=== PATIENT | female | born 1935 | race Caucasian/White ===

== ENCOUNTER 2017-01-29 14:46 | Outpatient (CLI) | payer MEDICARE | END 2017-01-29 14:47 | disposition home or self-care (01) | DX: M96.661 Fracture of femur following insertion of orthopedic implant, joint prosthesis, or bone plate, right leg (principal); Z96.643 Presence of artificial hip joint, bilateral ==

== ENCOUNTER 2018-09-29 23:18 | Outpatient (CLI) | payer MEDICARE | END 2018-09-29 23:19 | disposition critical access hospital (66) | LOC: EMS 23:18 | PROVIDERS: ATTEND Surgery | DX: R10.9 Unspecified abdominal pain (principal); R11.2 Nausea with vomiting, unspecified | CPT/HCPCS: A0425; A0429 ==

== ENCOUNTER 2018-09-30 00:08 | Emergency (ER) | payer MEDICARE ==
[2018-09-30 00:44] LABS: BASOPHILS % (AUTO) 0.5 %; EOSINOPHILS % (AUTO) 0.4 %; HGB - HEMOGLOBIN 13.4 g/dL (12.0-16.0); LYMPHOCYTES # (AUTO) 1.1 10^3/uL (1.5-3.5); LYMPHOCYTES % (AUTO) 13.5 %; MEAN CORPUSCULAR HEMOGLOBIN 30.7 pg (27.0-31.0); MEAN CORPUSCULAR HGB CONC 33.8 g/dL (32.0-36.0); MEAN PLATELET VOLUME 8.2 fL (7.9-10.8); MONOCYTES # (AUTO) 0.7 10^3/uL (0.0-1.0); MONOCYTES % (AUTO) 8.6 %; NEUTROPHILS # (AUTO) 6.3 10^3/uL (1.5-6.6); PLT - PLATELET COUNT 249 10^3/uL (130-450); RED BLOOD COUNT 4.37 10^6/uL (4.20-5.40); RED CELL DISTRIBUTION WIDTH 13.7 % (12.0-15.0); WHITE BLOOD COUNT 8.2 x10^3/uL (4.8-10.8)
[2018-09-30 00:56] LABS: ALBUMIN/GLOBULIN RATIO 1.1 (1.0-2.2); BILIRUBIN,TOTAL 0.5 mg/dL (0.2-1.0); CREATININE 0.6 mg/dL (0.4-1.0); TOTAL PROTEIN 7.6 g/dL (6.7-8.2)
--- NOTE | 2018-09-30 00:56 | XRAY Report ---
Reason: chest pain Procedure Date: 09/30/2018 Accession Number: [id number] / [id number] Procedure: XR - Chest 1 View X-Ray CPT Code: 84849 FULL RESULT: EXAM: CHEST RADIOGRAPHY EXAM DATE: 09/30/2018 12:49 AM. CLINICAL HISTORY: Chest pain. COMPARISON: None. TECHNIQUE: 1 view. FINDINGS: Lungs/Pleura: No focal opacities evident. No pleural effusion. No pneumothorax. Mediastinum: The heart is borderline enlarged. There is a very large hiatal hernia. Other: There is a subtle cortical defect in the inferior aspect of the right humeral neck. IMPRESSION: 1. Borderline enlarged heart. 2. Very large hiatal hernia. 3. No infiltrates. RADIA
[2018-09-30] MEDS ORDERED: LIDOCAINE VISCOUS 2% 15 ML UDC MM STA (01:02)
[2018-09-30] MEDS ORDERED: MAG HYDROX/AL HYDROX/SIMETH 30 ML UDC PO STA (01:02)
--- NOTE | 2018-09-30 01:04 | ED Physician Documentation ---
PD HPI ABD PAIN - Stated complaint Stated Complaint: EPIGASTRIC PAIN, VOMITING - Chief complaint Chief Complaint: General - History obtained from History obtained from: Patient, EMS - History of Present Illness Timing - onset: Today Timing - duration: Minutes Timing - details: Gradual onset, Now resolved Quality: Sharp, Pain Location: Epigastric Improved by: Laying still Worsened by: Palpation Associated symptoms: Nausea. No: Vomiting, Diarrhea, Constipation Similar symptoms before: Has not had sx before Recently seen: Clinic - Additional information Additional information: 83-year-old female with dementia complains tonight of epigastric pain. She denies any vomiting she denies any black or tarry stool she denies taking ibupro fen or Aleve. She is uncertain why she is here except that she was told to come to the emergency department. She is come by EMS. She lives at home with a son. Review of Systems Constitutional: denies: Fever Eyes: denies: Decreased vision Ears: denies: Ear pain Nose: denies: Rhinorrhea / runny nose, Congestion Throat: denies: Sore throat Cardiac: denies: Chest pain / pressure, Palpitations Respiratory: denies: Dyspnea, Cough GI: reports: Abdominal Pain, Nausea. denies: Vomiting, Constipation, Diarrhea : denies: Dysuria, Frequency Skin: denies: Rash Musculoskeletal: denies: Neck pain, Back pain, Extremity pain Neurologic: denies: Generalized weakness, Focal weakness PD PAST MEDICAL HISTORY - Past Medical History Cardiovascular: Other Respiratory: None Endocrine/Autoimmune: None GI: None : None HEENT: Chronic vision loss Psych: None Musculoskeletal: Osteoarthritis Derm: None - Past Surgical History Ortho: Hip replacement HEENT: Tonsil/Adenoidectomy - Present Medications Home Medications: Ambulatory Orders Medication Instructions Recorded Confirmed Vitamin D3/Folic Acid [Ortho D 1 cap PO DAILY 05/09/16 07/21/16 3,775 Unit-1 mg Cap] - Allergies Allergies/Adverse Reactions: Allergies Allergy/AdvReac Type Severity Reaction Status Date / Time Penicillins AdvReac Intermediate joint Verified 03/22/14 19:35 swelling - Social History Does the pt smoke?: No Smoking Status: Never smoker Does the pt drink ETOH?: Yes Does the pt have substance abuse?: No - Immunizations Immunizations are current?: Yes - POLST Patient has POLST: No PD ED PE NORMAL - Vitals Vital signs reviewed: Yes - General General: Alert and oriented X 3, Well developed/nourished, Other (flat affect with pantry steward/stewardess tone consistent with pain. ) - HEENT HEENT: Atraumatic, PERRL, EOMI - Neck Neck: Supple, no meningeal sign, No bony TTP - Cardiac Cardiac: RRR, No murmur - Respiratory Respiratory: No respiratory distress, Clear bilaterally - Abdomen Abdomen: Soft, Other (mild epigastric tenderness ) - Back Back: No CVA TTP, No spinal TTP - Derm Derm: Normal color, Warm and dry, No rash - Extremities Extremities: No deformity, No edema - Neuro Neuro: ivory polisher 2-12 intact, No motor deficit, No sensory deficit, Normal speech Eye Opening: Spontaneous Motor: Obeys Commands Verbal: Confused GCS Score: 14 - Psych Psych: Normal mood, Normal affect Results - Vitals Vitals: Vital Signs - 24 hr 09/29/18 09/30/18 23:55 01:26 Temperature 36.6 C Heart Rate 84 68 Respiratory 17 16 Rate Blood Pressure 133/86 H 147/89 H O2 Saturation 95 96 Oxygen O2 Source [] Room air O2 Source [] Room air O2 Source Room air - EKG (time done) 0006 Rate: Rate (enter#) (68) Rhythm: NSR Deshler: LAD Ischemia: Other (minimal ST elevation V2) Compare to prior EKG: Unchanged from prior EKG (SPT 16 no sig change) Computer interpretation: Agree with computer - Labs Labs: Laboratory Tests 09/30/18 09/30/18 09/30/18 00:40 00:40 00:40 WBC 8.2 RBC 4.37 Hgb 13.4 Hct 39.7 MCV 91.0 MCH 30.7 MCHC 33.8 RDW 13.7 Plt Count 249 MPV 8.2 Neut # (Auto) 6.3 Lymph # (Auto) 1.1 L [place] # (Auto) 0.7 Eos # (Auto) 0.0 Baso # (Auto) 0.0 Absolute Nucleated RBC 0.00 Nucleated RBC % 0.0 Sodium 143 Potassium 3.6 Chloride 101 Carbon Dioxide 28 Anion Gap 14.0 H BUN 25 H Creatinine 0.6 Estimated GFR (MDRD) 95 Glucose 161 H Calcium 9.0 Total Bilirubin 0.5 AST 19 ALT 17 Alkaline Phosphatase 60 Troponin I < 0.04 Total Protein 7.6 Albumin 4.0 Globulin 3.6 Albumin/Globulin Ratio 1.1 Lipase 77 H - Rads (name of study) 1 veiw chest Radiology: Prelim report reviewed (Impression: 1. Borderline enlarged heart. Very large hiatal hernia. No infiltrates.), EMP read indepedently, See rad report PD MEDICAL DECISION MAKING - ED course Complexity details: reviewed old records, reviewed results, re-evaluated patient, considered differential, d/w patient, d/w family ED course: 83 y/o female with epigastric pain radiating into the chest has a large hiatal hernia on plain film. She has dementia and is a poor historian. She is administered viscous lido and mylanta and vomits this. She is adminstered protonix IV and she has resolution of her symptoms. Her son is called Departure - Departure Disposition: Home, Self Care Clinical Impression: Hiatal hernia with GERD Condition: Stable Instructions: ED GERD, Famotidine, Hiatal Hernia Follow-Up: Ghazala Gonzalez PA-C [Provider Admit Priv/Credential] -
[2018-09-30 01:26] VITALS: BP 147/89
[2018-09-30] MEDS ORDERED: PANTOPRAZOLE 40 MG VIAL IVP STA (01:28)
== END 2018-09-30 03:34 | disposition home or self-care (01) ==
LOC: EDBD → ED 00:08
DX: K44.9 Diaphragmatic hernia without obstruction or gangrene (principal); R94.31 Abnormal electrocardiogram [ECG] [EKG]; I51.7 Cardiomegaly; F03.90 Unspecified dementia, unspecified severity, without behavioral disturbance, psychotic disturbance, mood disturbance, and anxiety
CPT/HCPCS: 36415; 71045; 80053; 83690; 84484; 85025; 93005; 96374; 99283; 99284; A9270

== ENCOUNTER 2019-03-17 07:54 | Outpatient (CLI) | payer MEDICARE ==
[2019-03-17 11:40] LABS: ALBUMIN 3.8 g/dL (3.2-5.5); ALBUMIN/GLOBULIN RATIO 1.3 (1.0-2.2); BILIRUBIN,TOTAL 0.8 mg/dL (0.2-1.0); CALCIUM 8.7 mg/dL (8.5-10.3); CREATININE 0.7 mg/dL (0.4-1.0); TOTAL PROTEIN 6.8 g/dL (6.7-8.2)
[2019-03-17 11:51] LABS: HEMOGLOBIN A1C 0.59 g/dL; HEMOGLOBIN A1C % 6.3 % (4.6-6.2)
== END 2019-03-17 07:55 | disposition home or self-care (01) ==
LOC: LAB.F 07:54
PROVIDERS: ATTEND Physician Assistant Medical
DX: R73.9 Hyperglycemia, unspecified (principal); N39.0 Urinary tract infection, site not specified; E55.9 Vitamin D deficiency, unspecified
CPT/HCPCS: 36415; 80053; 81001; 81003; 82306; 83036; 87086

== ENCOUNTER 2020-08-14 18:45 | Outpatient (CLI) | payer MEDICARE | END 2020-08-14 18:46 | disposition EMS.NT | LOC: EMS 18:45 | PROVIDERS: ATTEND Surgery ==